=== PATIENT | male | born 1965 | race Hispanic/Latino ===

== ENCOUNTER 2019-10-05 15:41 | Emergency (ER) | payer BC, OTHER ==
--- OUTSIDE RECORDS SUMMARY | 2019-10-05 15:43 | XMS REPORT ---
:1965 Author Organization eClinicalWorks Care Team Providers Name Role Phone Lopez, [facility] Provider Role Unavailable Allergies, Adverse Reactions, Alerts Substance Reaction Event Type N.K.D.A. Info Not Available Non Drug Allergy Problems Problem Type Condition Code Onset Dates Condition Status Assessment Nonintractable headache, unspecified R51 Active chronicity pattern, unspecified headache type Assessment Elevated BP without diagnosis of R03.0 Active hypertension Assessment Family history of diabetes mellitus Z83.3 Active Medications No Known Medications Results No Known Results Summary Purpose eClinicalWorks Submission
[2019-10-05 16:50] LABS: Absolute Lymphocytes (CBC) 1.6 K/uL (0.7-4.9); Basophils % 0.9 % (0-1.3); Lymphocytes % 28.3 % (15.3-44.8); MPV 9.4 fL (7.6-11.3); RBC Red Blood Cell Count 4.75 M/uL (4.33-5.43)
[2019-10-05 17:10] LABS: ALT/SGPT 32 U/L (12-78); AST/SGOT 22 U/L (15-37); Albumin 3.8 g/dL (3.4-5.0); Alkaline Phosphatase 64 U/L (45-117); BUN Blood Urea Nitrogen 15 mg/dL (7-18); Bicarbonate 28 mmol/L (21-32); Bilirubin Direct 0.1 mg/dL (0-0.2); Bilirubin Total 0.3 mg/dL (0.2-1.0); Glucose Level 104 mg/dL (74-106); Magnesium 2.1 mg/dL (1.8-2.4); NT PRO-BNP 29 pg/mL (<125); Potassium 3.9 mmol/L (3.5-5.1); Protein, Total 7.4 g/dL (6.4-8.2); Sodium Level 141 mmol/L (136-145); Troponin (Emerg Dept Use Only) < 0.02 ng/mL (0.0-0.045)
[2019-10-05 17:24] LABS: Protime INR 0.98
--- NOTE | 2019-10-05 17:51 | ER ---
Nurse's Notes [facility] Name: Rambo Del Rio Age: 54 yrs Sex: Male : 1965 Arrival Date: 10/05/2019 Time: 15:44 Bed 23 Private MD: Ralph Lopez Diagnosis: Chest pain, unspecified;Pain in left arm Presentation: 10/05 14:00 Presenting complaint: Patient states: Left arm pain that began this morning, reports sg the pain is only on the arm, not having pain anywhere else in the body at this time, pt states no N/V/D/Fever. Transition of care: patient was not received from another setting of care. Onset of symptoms was October 05, 2019. Risk Assessment: Do you want to hurt yourself or someone else? Patient reports no desire to harm self or others. Initial Sepsis Screen: Does the patient meet any 2 criteria? No. Patient's initial sepsis screen is negative. Does the patient have a suspected source of infection? No. Patient's initial sepsis screen is negative. Care prior to arrival: None. 14:00 Method Of Arrival: Ambulatory sg 14:00 Acuity: PAL 3 sg Historical: - Allergies: 16:12 No Known Allergies; sg - Home Meds: 16:12 None [Active]; sg - PMHx: 16:12 None; sg - PSHx: 16:12 None; sg - Immunization history:: Adult Immunizations up to date. - Social history:: Patient/guardian denies using tobacco products. - Ebola Screening: : Patient negative for fever greater than or equal to 101.5 degrees Fahrenheit, and additional compatible Ebola Virus Disease symptoms Patient denies exposure to infectious person Patient denies travel to an Ebola-affected area in the 21 days before illness onset No symptoms or risks identified at this time. Screenin:20 Abuse screen: Denies threats or abuse. Denies injuries from another. Nutritional sg screening: No deficits noted. Tuberculosis screening: No symptoms or risk factors identified. Never had TB. Fall Risk None identified. Assessment: 16:20 General: Appears in no apparent distress. well groomed, well developed, well nourished, sg Behavior is calm, cooperative, appropriate for age. Pain: Complains of pain in left arm Quality of pain is described as aching, sore Pain began gradually. Neuro: Level of Consciousness is awake, alert, obeys commands, Oriented to person, place, time, Speech is normal, Facial symmetry appears normal. Cardiovascular: Capillary refill is brisk in bilateral fingers Patient's skin is warm and dry. Chest pain is denied. Respiratory: Airway is patent Respiratory effort is even, unlabored, Respiratory pattern is regular, symmetrical. GI: No signs and/or symptoms were reported involving the gastrointestinal system. : No signs and/or symptoms were reported regarding the genitourinary system. EENT: No signs and/or symptoms were reported regarding the EENT system. Derm: Skin is pink, warm \T\ dry. Musculoskeletal: Circulation, motion, and sensation intact. Range of motion: intact in all extremities. Vital Signs: 14:00 BP 142 / 70; Pulse 66; Resp 17; Temp 97.7; Pulse Ox 99% on R/A; Pain 4/10; sg 15:30 BP 133 / 77; Pulse 65; Resp 17; Pulse Ox 99% on R/A; sg 17:30 BP 125 / 87; Pulse 66; Resp 17; Pulse Ox 99% on R/A; sg ED Course: 15:44 Patient arrived in ED. mr 15:44 Ralph Lopez DO is Private Physician. mr 16:04 Michael Duggan PA is PHCP. [facility] 16:04 Marvin Mcnamara MD is Attending Physician. jm 16:10 Rick Chery, MARCOS is Primary Nurse. sg 16:11 Triage completed. sg 16:11 Arm band placed on. sg 16:20 Patient has correct armband on for positive identification. Bed in low position. Call sg light in reach. Side rails up X2. case monitor on. Pulse ox on. NIBP on. Warm blanket given. Head of bed elevated. 16:41 Initial lab(s) drawn, by me, sent to lab. Inserted saline lock: 20 gauge in right lt1 antecubital area, using aseptic technique. 17:28 XRAY Chest (1 view) In Process Unspecified. EDMS 17:50 US Extremity Venous Unilateral Ltd In Process Unspecified. EDMS 17:50 Ultrasound completed. Patient tolerated well. sg3 17:51 Ralph Lopez DO is Referral Physician. jmm 17:55 No provider procedures requiring assistance completed. IV discontinued, intact, sg bleeding controlled, No redness/swelling at site. Pressure dressing applied. Administered Medications: No medications were administered Outcome: 17:51 Discharge ordered by . behzad 17:55 Discharged to home ambulatory, with family. sg 17:55 Condition: good 17:55 Discharge instructions given to patient, Instructed on discharge instructions, follow up and referral plans. safety practices, Demonstrated understanding of instructions, follow-up care. 18:09 Patient left the ED. sg Signatures: Dispatcher [employer] EDRick Lynne RN RN Michael Rico PA PA jmm Rivera, Mary mr Forde, Yenni sg3 Peralta, Tiff lt1
--- NOTE | 2019-10-05 17:51 | EDPHYS ---
Physician Documentation [facility] Name: Rambo Del Rio Age: 54 yrs Sex: Male : 1965 Arrival Date: 10/05/2019 Time: 15:44 Bed 23 Private MD: John [facility] ED Physician Marvin Mcnamara HPI: 10/05 16:12 This 54 yrs old Male presents to ER via Ambulatory with complaints of Arm Pain.jmm 16:12 The patient or guardian complains of pain. Onset: The symptoms/episode began/occurred jmm gradually, 1 day(s) ago. Modifying factors: The symptoms are alleviated by nothing. the symptoms are aggravated by nothing. Associated signs and symptoms: Pertinent positives:. This is a 54 year old male with no chronic medical conditions that presents to the ED with complaints of left proximal arm pain. Patient denies injury. Patient admits to a 30 minute episode of chest pressure which lasted for approx 30 minutes. Denies abdominal pain, vomiting, or shortness of breath. Denies neck pain, denies jaw. . Historical: - Allergies: 16:12 No Known Allergies; sg - Home Meds: 16:12 None [Active]; sg - PMHx: 16:12 None; sg - PSHx: 16:12 None; sg - Immunization history:: Adult Immunizations up to date. - Social history:: Patient/guardian denies using tobacco products. - Ebola Screening: : Patient negative for fever greater than or equal to 101.5 degrees Fahrenheit, and additional compatible Ebola Virus Disease symptoms Patient denies exposure to infectious person Patient denies travel to an Ebola-affected area in the 21 days before illness onset No symptoms or risks identified at this time. ROS: 16:12 Constitutional: Negative for fever, chills, and weight loss. jmm 16:12 Respiratory: Negative for shortness of breath, cough, wheezing, and pleuritic chest pain, Abdomen/GI: Negative for abdominal pain, nausea, vomiting, diarrhea, and constipation, Back: Negative for injury and pain. 16:12 Cardiovascular: Positive for chest pain. 16:12 MS/extremity: Positive for pain. 16:12 All other systems are negative. Exam: 16:12 Constitutional: This is a well developed, well nourished patient who is awake, alert, jmm and in no acute distress. Head/Face: atraumatic. Eyes: EOMI, no conjunctival erythema appreciated ENT: Moist Mucus Membranes Neck: Trachea midline, Supple Chest/axilla: Normal chest wall appearance and motion. Cardiovascular: Regular rate and rhythm. No edema appreciated Respiratory: Normal respirations, no respiratory distress appreciated Abdomen/GI: Non distended, soft Back: Normal ROM Skin: General appearance color normal 16:12 Musculoskeletal/extremity: ROM: no acute changes, no swelling appreciated, full ROM, compartments are soft, full radial pulse, NVI. 16:12 Skin: Appearance: Color: normal in color. 16:12 Neuro: Orientation: is normal, Mentation: is normal, Memory: is normal. 16:12 Psych: Behavior/mood is pleasant, cooperative. Vital Signs: 14:00 BP 142 / 70; Pulse 66; Resp 17; Temp 97.7; Pulse Ox 99% on R/A; Pain 4/10; sg 15:30 BP 133 / 77; Pulse 65; Resp 17; Pulse Ox 99% on R/A; sg 17:30 BP 125 / 87; Pulse 66; Resp 17; Pulse Ox 99% on R/A; sg MDM: 16:06 Patient medically screened. [facility] 17:50 Data reviewed: vital signs, nurses notes. Counseling: I had a detailed discussion with [facility] the patient and/or guardian regarding: the historical points, exam findings, and any diagnostic results supporting the discharge/admit diagnosis, lab results, radiology results, the need for outpatient follow up, to return to the emergency department if symptoms worsen or persist or if there are any questions or concerns that arise at home. ED course: HEART SCORE = 2. I do not suspect ACS. D-Dimer negative. US negative. Patient advised to follow up with pcp and otherwise given strict return precautions. Patient understood and agrees with the plan of care. . 10/05 16:12 Order name: Basic Metabolic Panel; Complete Time: 17: [facility] 10/05 16:12 Order name: CBC with Diff; Complete Time: 17:24 [facility] 10/05 16:12 Order name: LFT's; Complete Time: 17: [facility] 10/05 16:12 Order name: Magnesium; Complete Time: 17: [facility] 10/05 16:12 Order name: NT PRO-BNP; Complete Time: 17: [facility] 10/05 16:12 Order name: PT-INR; Complete Time: 17:25 [facility] 10/05 16:12 Order name: Troponin (emerg Dept Use Only); Complete Time: 17:23 [facility] 10/05 16:12 Order name: XRAY Chest (1 view) [facility] 10/05 16:12 Order name: EKG; Complete Time: 16:13 [facility] 10/05 16:12 Order name: Cardiac monitoring; Complete Time: 16:41 [facility] 10/05 16:12 Order name: EKG - Nurse/Tech; Complete Time: 16:41 [facility] 10/05 16:12 Order name: IV Saline Lock; Complete Time: 16:41 [facility] 10/05 16:12 Order name: D-Dimer; Complete Time: 17: [facility] 10/05 16:18 Order name: US Extremity Venous Unilateral Ltd [facility] 10/05 16:12 Order name: Labs collected and sent; Complete Time: 16:41 [facility] 10/05 16:12 Order name: O2 Per Protocol; Complete Time: 16:41 [facility] 10/05 16:12 Order name: O2 Sat Monitoring; Complete Time: 16:41 [facility] Administered Medications: No medications were administered Disposition: 10/06 15:53 Co-signature as Attending Physician, Marvin Mcnamara MD. ma2 Disposition: 10/05/19 17:51 Discharged to Home. Impression: Chest pain, unspecified, Pain in left arm. - Condition is Stable. - Discharge Instructions: Nonspecific Chest Pain, Musculoskeletal Pain. - Prescriptions for orphenadrine citrate 100 mg Oral Tablet Sustained Release - take 1 tablet by ORAL route 2 times per day As needed; 20 tablet. - Medication Reconciliation Form, Thank You Letter, Antibiotic Education, Prescription Opioid Use form. - Follow up: Ralph Lopez, ; When: 2 - 3 days; Reason: Recheck today's complaints, Continuance of care, Re-evaluation by your physician. Signatures: Dispatcher [employer] Rick Viera, MARCOS RN Michael Rico PA PA jmm Alzahri, Mohammad, MD MD ma2 Corrections: (The following items were deleted from the chart) 10/05 18:09 17:51 10/05/2019 17:51 Discharged to Home. Impression: Chest pain, unspecified; Pain in sg left arm. Condition is Stable. Forms are Medication Reconciliation Form, Thank You Letter, Antibiotic Education, Prescription Opioid Use. Follow up: Ralph Lopez; When: 2 - 3 days; Reason: Recheck today's complaints, Continuance of care, Re-evaluation by your physician. behzad
--- NOTE | 2019-10-05 18:56 | RAD REPORT ---
EXAM DESCRIPTION: RAD - Chest Single View - 10/05/2019 5:28 pm CLINICAL HISTORY: Chest pain, left arm pain COMPARISON: None. TECHNIQUE: AP portable chest image was obtained 1705 hours . FINDINGS: No focal mass or consolidation. Interstitial markings are relatively prominent. This is pr obably shallow inspiration and portable artifact. A mild interstitial edema or infiltrate not exclude d. Heart and vasculature are normal. No measurable pleural effusion and no pneumothorax. No acute bon y abnormality seen. No acute aortic findings suspected. IMPRESSION: No focal mass or consolidation peer Mild prominence of the interstitial pattern is probably baseline accentuation due to low lung volume. A mild edema or infiltrate is possible.
--- NOTE | 2019-10-05 18:57 | RAD REPORT ---
EXAM DESCRIPTION: US - Extremity Venous Uni Ltd - 10/05/2019 5:50 pm CLINICAL HISTORY: Left arm pain and swelling COMPARISON: None. TECHNIQUE: Real-time sonographic evaluation of the left upper extremity deep venous systems was perf ormed. FINDINGS: Normal compressibility, flow augmentation, phasic flow and spontaneous flow are identified in the left upper extremity deep venous system. No intraluminal filling defects seen. Internal jugul ar and subclavian veins are normal as well. IMPRESSION: No DVT in the left upper extremity.
[2019-10-05 19:31] VITALS: BP 125/87; O2SAT 99
--- NOTE | 2019-10-06 08:47 | EKG ---
Test Date: 2019-10-05 Test Time: 16:22:52 Box Maker Wood: SWG MEASUREMENT RESULTS: Intervals: Rate: 70 AZ: 166 QRSD: 74 QT: 366 QTc: 395 Sadler: P: 33 AZ: 166 QRS: 59 T: 1 INTERPRETIVE STATEMENTS: Normal sinus rhythm ST elevation, consider early repolarization, pericarditis, or injury Abnormal ECG No previous ECG available for comparison Electronically Signed On 10-06-19 08:47:06 CONDITIONER TUMBLER OPERATOR by Nestor Quinteros
== END 2019-10-05 18:09 | disposition home or self-care (01) ==
LOC: ER 15:41
DX: R07.9 Chest pain, unspecified (principal); M79.602 Pain in left arm
CPT/HCPCS: 36415; 71045; 80048; 80076; 83735; 83880; 84484; 85025; 85379; 85610; 93005; 93971; 99284

== ENCOUNTER 2022-03-08 10:24 | Emergency (ER) | payer BC ==
--- OUTSIDE RECORDS SUMMARY | 2022-03-08 10:26 | XMS REPORT | Continuity of Care Document ---
:1965 Author Organization [facility] t Address [address] Garcia [address] [place] [address] Care Team Providers Name Role Phone Bree Lopez Attending Clinician Unavailable TINY Attending Clinician Unavailable PAULINO CABEZAS Attending Clinician Unavailable Payers Payer Name Policy Type Policy Number Effective Date Expiration Date S ource HIM BCBS BLUE [id number] 2019 ADVANTAGE O 00:00:00 Problems This patient has no known problems. Allergies, Adverse Reactions, Alerts Allergy Allergy Status Severity Reaction(s) Onset Inactive Treating Comm ents Source Name Type Date Date Clinician NO KNOWN Drug [facility] Medications This patient has no known medications. Procedures This patient has no known procedures. Encounters Start End Encounter Admission Attending Care Care Encounter Source Date/Time Date/Time Type Type Clinicians Facility Department ID 2021-10-12 Outpatient Lopez, [facility] [id number] Common 13:06:24 Ralph [id number] [facility] 2021-10-12 Outpatient Lopez, [facility] [id number] Common 13:01:34 Ralph [address] [facility] 2021-10-12 Outpatient Lopez, [facility] [id number] Common 12:37:18 Ralph [address] [facility] 2021-10-12 Outpatient Lopez, [facility] [id number] Common 11:21:36 Ralph [address] [facility] 2021-10-12 [facility] [id number] Common 11:15:52 [facility] [address] [facility] 2020-11-22 2020-11-22 Outpatient [facility] [id number] Common 00:00:00 00:00:00 [facility] 2020-11-19 2020-11-19 Outpatient R [facility] [id number] Univers 09:40:00 09:40:00 [id number] [facility] 2020-11-19 2020-11-19 [facility] [id number] Univers 09:40:00 09:40:00 VIJAYA [facility] 2020-11-19 2020-11-19 Outpatient [facility] [id number] Common 00:00:00 00:00:00 [facility] 2020-07-15 2020-07-15 [facility] [id number] Univers 19:20:00 19:20:00 DHIRAJ [facility] 2019-10-07 2019-10-07 [id number] Common 14:37:00 14:37:[address] [facility] 2019-09-04 2019-09-04 [facility] [id number] Common 09:15:00 09:15:[address] [facility] Results This patient has no known results.
[2022-03-08] MEDS ORDERED: DICYCLOMINE HCL 20 MG/2 ML AMP IM ONE (12:01)
[2022-03-08] MEDS ORDERED: NA CHLORIDE 0.9% 1,000 ML ONE (12:02)
[2022-03-08 12:05] LABS: Absolute Lymphocytes (CBC) 1.5 K/uL (0.7-4.9); Hematocrit 43.6 % (39.6-49.0); Lymphocytes % 24.8 % (15.3-44.8); MPV 8.2 fL (7.6-11.3); RBC Red Blood Cell Count 4.87 M/uL (4.33-5.43)
[2022-03-08 12:25] LABS: Albumin 3.6 g/dL (3.4-5.0); Bilirubin Total 0.6 mg/dL (0.2-1.0); Potassium 4.4 mmol/L (3.5-5.1); Protein, Total 7.6 g/dL (6.4-8.2)
--- NOTE | 2022-03-08 12:53 | RAD REPORT ---
EXAM DESCRIPTION: CTAbdomen Pelvis W Contrast - 03/08/2022 12:44 pm CLINICAL HISTORY: LLQ abdominal pain COMPARISON: CT ABD PELVIS W CONTRAST dated 10/24/2008 TECHNIQUE: CT of the abdomen and pelvis was performed with contrast. All CT scans are performed using dose optimization technique as appropriate and may include automated exposure control or mA/KV adjustment according to patient size. FINDINGS: Lower chest: No acute abnormality. Liver: No acute abnormality or suspicious lesions. Biliary: No biliary ductal dilatation. Stomach: No significant focal abnormality. Duodenum: No significant focal abnormality. Pancreas: No significant abnormality. Spleen: No significant abnormality. Adrenal: Small left adrenal nodules unchanged. It measures approximate 10 millimeters. Kidney/ureter: No hydronephrosis. No renal calculi. Retroperitoneum: No retroperitoneal adenopathy. Vascular: No aneurysm. Bowel: Sigmoid diverticulitis is present. No perforation or abscess. No bowel obstruction.. Normal ap pendix. Peritoneum: No ascites or free air. Bladder: Grossly unremarkable. Reproductive: Fluid collections at the scrotum may be hydroceles but is only partially imaged. Bones: No acute fracture. Other: n/a IMPRESSION: Non perforated sigmoid diverticulitis. No bowel obstruction. Normal appendix.
--- NOTE | 2022-03-08 13:46 | ER ---
Nurse's Notes [facility] Name: Rambo Del Rio Age: 57 yrs Sex: Male : 1965 Arrival Date: 03/08/2022 Time: 10:27 Bed 13 Private MD: Diagnosis: Diverticulitis of large intestine without perforation or abscess without bleeding Presentation: 03/08 10:53 Chief complaint: Patient states: "I have been having off and on issues for the past two ss weeks and I'm thinking it's my diverticulitis." Pt c/o LLQ pain and diarrhea. Coronavirus screen: Client denies travel out of the [place] in the last 14 days. Ebola Screen: Patient denies exposure to infectious person. Patient denies travel to an Ebola-affected area in the 21 days before illness onset. Initial Sepsis Screen: Does the patient meet any 2 criteria? No. Patient's initial sepsis screen is negative. Does the patient have a suspected source of infection? No. Patient's initial sepsis screen is negative. Risk Assessment: Do you want to hurt yourself or someone else? Patient reports no desire to harm self or others. Onset of symptoms was March 07, 2022. 10:53 Method Of Arrival: Ambulatory ss 10:53 Acuity: PAL 3 ss Historical: - Allergies: 10:55 No Known Allergies; ss - Home Meds: 10:55 None [Active]; ss - PMHx: 10:55 Diverticulitis; ss - PSHx: 10:55 None; ss - Immunization history:: Adult Immunizations up to date. - Social history:: Smoking status: Patient denies any tobacco usage or history of. Screenin:21 Abuse screen: Denies threats or abuse. Denies injuries from another. Nutritional ph screening: No deficits noted. Tuberculosis screening: No symptoms or risk factors identified. Fall Risk None identified. Assessment: 11:50 General: Appears in no apparent distress. comfortable, slender, well groomed, Behavior ph is calm, cooperative, appropriate for age. Pain: Complains of pain in left lower quadrant Quality of pain is described as crampy. Neuro: Level of Consciousness is awake, alert, obeys commands, Oriented to person, place, time, situation. Cardiovascular: Capillary refill < 3 seconds in bilateral fingers Patient's skin is warm and dry. Respiratory: No deficits noted. Airway is patent Respiratory effort is even, unlabored. GI: Abdomen is flat, non-distended, Abd is soft X 4 quads Reports lower abdominal pain, cramping, diarrhea, Patient currently denies bloating, bloody stool, nausea, vomiting. Derm: Skin is intact, is healthy with good turgor, Skin is pink, warm \\T\\ dry. 12:27 Reassessment: Patient appears in no apparent distress at this time. Patient and/or ph family updated on plan of care and expected duration. Pain level reassessed. Patient is alert, oriented x 3, equal unlabored respirations, skin warm/dry/pink. Vital Signs: 10:53 BP 112 / 81; Pulse 66; Resp 16; Temp 98.2(TE); Pulse Ox 99% on R/A; Weight 78.02 kg; ss Height 5 ft. 8 in. (172.72 cm); Pain 7/10; 12:27 BP 113 / 79; Pulse 61; Resp 18; Pulse Ox 98% on R/A; ph 14:15 BP 115 / 78; Pulse 64; Resp 18; Temp 97.9; Pulse Ox 99% on R/A; ph 10:53 Body Mass Index 26.15 (78.02 kg, 172.72 cm) ED Course: 10:27 Patient arrived in ED. rg4 10:33 Flako Quintero PA is PHCP. cp 10:33 Octaviano Bridges MD is Attending Physician. cp 10:55 Triage completed. ss 10:55 Arm band placed on right wrist. ss 11:10 Danae Cabrera, RN is Primary Nurse. ph 11:21 Patient has correct armband on for positive identification. Placed in gown. Bed in low ph position. Call light in reach. Side rails up X 1. Pulse ox on. NIBP on. Door closed. Noise minimized. 11:51 Initial lab(s) drawn, by me, sent to lab. Inserted saline lock: 22 gauge in right ph antecubital area, using aseptic technique. Blood collected. 12:46 CT Abd/Pelvis - IV Contrast Only In Process Unspecified. EDMS 14:15 No provider procedures requiring assistance completed. IV discontinued, intact, ph bleeding controlled, No redness/swelling at site. Pressure dressing applied. Administered Medications: 12:05 Drug: Bentyl (dicyclomine) 20 mg Route: IM; Site: right deltoid; ph 14:13 Follow up: Response: No adverse reaction; Pain is decreased ph 12:05 Drug: NS 0.9% 1000 ml Route: IV; Rate: 500 ml/hr; Site: right antecubital; ph 14:14 Follow up: Response: No adverse reaction; IV Status: Completed infusion; IV Intake: ph 1000ml 14:13 Drug: Cipro (ciprofloxacin) 500 mg Route: PO; ph 14:14 Follow up: Response: No adverse reaction ph 14:13 Drug: metroNIDAZOLE 500 mg Route: PO; ph 14:14 Follow up: Response: No adverse reaction ph 14:14 Not Given (Patient Refused; Denies N/V): Zofran (Ondansetron) 4 mg IVP once; over 2 ph minutes Medication: 11:21 VIS not applicable for this client. ph Intake: 14:14 IV: 1000ml; Total: 1000ml. ph Outcome: 13:46 Discharge ordered by . kit 14:15 Discharged to home ambulatory. ph 14:15 Condition: good 14:15 Discharge instructions given to patient, Instructed on discharge instructions, follow up and referral plans. medication usage, Demonstrated understanding of instructions, follow-up care, medications, Prescriptions given X 4. 14:16 Patient left the ED. ph Signatures: Dispatcher [employer] EDAmi Cox RN RN Danae Cabrera RN RN ph Flako Quintero PA PA cp Garcia, Rubi rg4
--- NOTE | 2022-03-08 13:46 | EDPHYS ---
Physician Documentation [facility] Name: Rambo Del Rio Age: 57 yrs Sex: Male : 1965 Arrival Date: 03/08/2022 Time: 10:27 Bed 13 Private MD: ED Physician Octaviano Bridges HPI: 03/08 11:28 This 57 yrs old Male presents to ER via Ambulatory with complaints of cp Abdominal Pain. 11:28 The patient presents with abdominal pain in the left lower quadrant. Onset: The cp symptoms/episode began/occurred 2 week(s) ago, and became persistent 3 days ago. The symptoms do not radiate. Associated signs and symptoms: Pertinent positives: diarrhea. 11:28 Severity of pain: in the emergency department the pain is unchanged despite home cp interventions. Historical: - Allergies: 10:55 No Known Allergies; ss - Home Meds: 10:55 None [Active]; ss - PMHx: 10:55 Diverticulitis; ss - PSHx: 10:55 None; ss - Immunization history:: Adult Immunizations up to date. - Social history:: Smoking status: Patient denies any tobacco usage or history of. ROS: 11:30 Constitutional: Negative for body aches, chills, fever, poor PO intake. cp 11:30 Eyes: Negative for injury, pain, redness, and discharge. cp 11:30 ENT: Negative for drainage from ear(s), ear pain, sore throat, difficulty swallowing, difficulty handling secretions. 11:30 Cardiovascular: Negative for chest pain, edema, palpitations. 11:30 Respiratory: Negative for cough, shortness of breath, wheezing. 11:30 Abdomen/GI: Positive for abdominal pain, nausea, diarrhea, of the left lower quadrant, Negative for vomiting, constipation, anorexia, black/tarry stool, rectal bleeding. 11:30 Back: Negative for radiated pain. 11:30 : Negative for urinary symptoms, testicular pain 11:30 Neuro: Negative for altered mental status, dizziness, headache, weakness. 11:30 All other systems are negative. Exam: 11:35 Constitutional: The patient appears in no acute distress, alert, awake, cp non-diaphoretic, non-toxic, well developed, well nourished. 11:35 Head/Face: Normocephalic, atraumatic. cp 11:35 Eyes: Periorbital structures: appear normal, Conjunctiva: normal, no exudate, no injection, Sclera: no appreciated abnormality, Lids and lashes: appear normal, bilaterally. 11:35 ENT: External ear(s): are unremarkable, Nose: is normal, Mouth: Lips: moist, Oral mucosa: pink and intact, moist, Posterior pharynx: Airway: no evidence of obstruction, patent. 11:35 Chest/axilla: Inspection: normal. 11:35 Cardiovascular: Rate: normal, Rhythm: regular. 11:35 Respiratory: the patient does not display signs of respiratory distress, Respirations: normal, no use of accessory muscles, no retractions, labored breathing, is not present, Breath sounds: are clear throughout, no decreased breath sounds, no stridor, no wheezing. 11:35 Abdomen/GI: Inspection: abdomen appears normal, Bowel sounds: active, all quadrants, Palpation: soft, in all quadrants, mild abdominal tenderness, in the left lower quadrant, rebound tenderness, is not appreciated, voluntary guarding, is not appreciated, involuntary guarding, is not appreciated. 11:35 Back: pain, is absent, ROM is normal. Vital Signs: 10:53 BP 112 / 81; Pulse 66; Resp 16; Temp 98.2(TE); Pulse Ox 99% on R/A; Weight 78.02 kg; ss Height 5 ft. 8 in. (172.72 cm); Pain 7/10; 12:27 BP 113 / 79; Pulse 61; Resp 18; Pulse Ox 98% on R/A; ph 14:15 BP 115 / 78; Pulse 64; Resp 18; Temp 97.9; Pulse Ox 99% on R/A; ph 10:53 Body Mass Index 26.15 (78.02 kg, 172.72 cm) ss MDM: 11:17 Patient medically screened. 03/08 11:25 Order name: CBC with Diff cp 03/08 11:25 Order name: CMP; Complete Time: 12:56 cp 03/08 13:41 Interpretation: Reviewed. 03/08 11:25 Order name: Lipase; Complete Time: 12:56 cp 03/08 11:25 Order name: CT Abd/Pelvis - IV Contrast Only; Complete Time: 12:56 cp 03/08 11:25 Order name: IV Saline Lock; Complete Time: 11:50 cp 03/08 11:25 Order name: Labs collected and sent; Complete Time: 11:50 cp 03/08 11:25 Order name: Urine Dipstick-Ancillary (obtain specimen); Complete Time: 14:14 cp 03/08 13:43 Order name: PO challenge; Complete Time: 14:14 cp Administered Medications: 12:05 Drug: Bentyl (dicyclomine) 20 mg Route: IM; Site: right deltoid; ph 14:13 Follow up: Response: No adverse reaction; Pain is decreased ph 12:05 Drug: NS 0.9% 1000 ml Route: IV; Rate: 500 ml/hr; Site: right antecubital; ph 14:14 Follow up: Response: No adverse reaction; IV Status: Completed infusion; IV Intake: ph 1000ml 14:13 Drug: Cipro (ciprofloxacin) 500 mg Route: PO; ph 14:14 Follow up: Response: No adverse reaction ph 14:13 Drug: metroNIDAZOLE 500 mg Route: PO; ph 14:14 Follow up: Response: No adverse reaction ph 14:14 Not Given (Patient Refused; Denies N/V): Zofran (Ondansetron) 4 mg IVP once; over 2 ph minutes Disposition: 18:28 Co-signature as Attending Physician, Octaviano Bridges MD. rn Disposition Summary: 03/08/22 13:46 Discharge Ordered Location: Home cp Problem: new cp Symptoms: have improved cp Condition: Stable cp Diagnosis - Diverticulitis of large intestine without perforation or abscess without bleeding cp Followup: cp - With: Private Physician - When: 2 - 3 days - Reason: Recheck today's complaints Discharge Instructions: - Discharge Summary Sheet cp - High-Fiber Diet cp - Diverticulitis cp Forms: - Medication Reconciliation Form cp - Thank You Letter cp - Antibiotic Education cp - Prescription Opioid Use cp Prescriptions: - Zofran 4 mg Oral Tablet - take 1 tablet by ORAL route every 12 hours As needed; 20 tablet; Refills: 0, cp Product Selection Permitted - Cipro 500 mg Oral Tablet - take 1 tablet by ORAL route every 12 hours for 7 days; 14 tablet; Refills: 0, cp Product Selection Permitted - Metronidazole 500 mg Oral Tablet - take 1 tablet by ORAL route every 8 hours; 30 tablet; Refills: 0, Product cp Selection Permitted - dicyclomine 20 mg Oral Tablet - take 1 tablet by ORAL route 4 times per day; 30 tablet; Refills: 0, Product cp Selection Permitted Signatures: Dispatcher [employer] Octaviano Caldwell MD MD rn Smirch, Shelby, RN RN ss Danae Cabrera RN RN Flako Potter, SUKUMAR PATINO cp
[2022-03-08] MEDS ORDERED: CIPROFLOXACIN HCL 500 MG TAB ONE (14:07)
[2022-03-08] MEDS ORDERED: metroNIDAZOLE 500 MG TABLET ONE (14:07)
[2022-03-08 14:27] VITALS: BP 115/78; TEMP 97.9; O2SAT 99
== END 2022-03-08 14:16 | disposition home or self-care (01) ==
LOC: ER 10:24
DX: K57.32 Diverticulitis of large intestine without perforation or abscess without bleeding (principal)
CPT/HCPCS: 96361; 85025; 36415; 83690; 80053; 74177; 96360; 96372; 99284; Q9967; J0500; J7030